=== PATIENT | male | born 1975 | race African-American/Black ===

== ENCOUNTER 2019-05-31 15:32 | Emergency (ER) | payer BC, MEDICAID ==
--- NOTE | 2019-05-31 16:15 | UC ---
Nausea/Vomiting/Diarrhea HPI - HPI Summary HPI Summary: 3 DAYS OF NAUSEA AND VOMITING. NO DIARRHEA. FEELS A LITTLE BETTER TODAY AND WAS ACTUALLY ABLE TO KEEP DOWN HALF A BANANA AND SOME WATER. PATIENT IS A DIABETIC AND REPORTS HE HAS BEEN OUT OF HIS METFORMIN AND GLIPIZIDE FOR ABOUT A MONTH. NO FEVER. - History of Current Complaint Chief Complaint: UCAbdominalPain Stated Complaint: VOMITING, AND NAUSEA Time Seen by Provider: 05/31/19 15:56 Hx Obtained From: Patient Onset/Duration: Gradual Onset, Lasting Days, Still Present Timing: Constant Severity Initially: Moderate Severity Currently: Moderate Pain Intensity: 2 Pain Scale Used: 0-10 Numeric Character: Not Applicable Aggravating Factor(s): Nothing Alleviating Factor(s): Nothing Nausea/Vomiting Presence: Nauseated, Vomiting Vomiting Frequency: Every 3-4 hours Diarrhea Presence: No - Allergies/Home Medications Allergies/Adverse Reactions: Allergies Allergy/AdvReac Type Severity Reaction Status Date / Time Penicillins Allergy Unknown Verified 05/31/19 15:52 Reaction Details PMH/Surg Hx/FS Hx/Imm Hx Endocrine History: Diabetes Cardiovascular History: Hypertension Other History Of: Negative For: Anticoagulant Therapy - Surgical History Surgical History: None Surgery Procedure, Year, and Place: hernia repair at . knee. elbow - Family History Known Family History: Positive: Hypertension, Diabetes - Social History Alcohol Use: None Substance Use Type: Marijuana Substance Use Comment - Amount & Last Used: few times weekly Smoking Status (MU): Light Every Day Tobacco Smoker Type: Cigarettes, Cigars Have You Smoked in the Last Year: Yes - Immunization History Most Recent Influenza Vaccination: not this season, does not want this year Most Recent Tetanus Shot: unknown Most Recent Pneumonia Vaccination: unknown Review of Systems All Other Systems Reviewed And Are Negative: Yes Constitutional: Positive: Fatigue Respiratory: Positive: Negative Cardiovascular: Positive: Negative Gastrointestinal: Positive: Vomiting, Nausea Genitourinary: Positive: Negative Physical Exam Triage Information Reviewed: Yes Appearance: Well-Appearing, No Pain Distress, Well-Nourished Vital Signs: Initial Vital Signs Temp 99.8 F 05/31/19 15:45 Pulse 121 05/31/19 15:45 Resp 16 05/31/19 15:45 BP 152/109 05/31/19 15:45 Pulse Ox 98 05/31/19 15:45 Laboratory Tests 05/31/19 16:04 POC Glucose (mg/dL) 285 H Vital Signs Reviewed: Yes Eyes: Positive: Conjunctiva Clear ENT: Positive: Hearing grossly normal Neck: Positive: Supple Respiratory Exam: Normal Cardiovascular: Positive: Tachycardia Abdomen Description: Positive: Nontender, Soft Musculoskeletal: Positive: No Edema Neurological: Positive: Alert Psychological: Positive: Age Appropriate Behavior Skin: Negative: Rashes Re-Evaluation - Re-Evaluation First Eval Re-Evaluation Time: 17:20 - TO [facility] BY AMBULANCE Change: Worse Naus/Vom/Diarrhea Course/Dx - Course Course Of Treatment: PATIENT ARRIVES WITH HYPERGLYCEMIA (RANDOM GLUCOSE 285), NAUSEA/VOMITING AND OVERALL MALAISE FOR 3 DAYS. PATIENT IS TACHYCARDIC AND TEMP IS BORDERLINE. FELT WORSE AFTER 1 L NORMAL SALINE AND 4 MG OF ZOFRAN. BP ALSO WORSE - 199/115. TO [facility] BY AMBULANCE. - Differential Dx/Diagnosis Provider Diagnosis: Uncontrolled diabetes mellitus, Hypertensive crisis Condition At Discharge: Fair - Physician Notification/Consults Discussed Case/Management/Disposition Of Patient With: Brandon Trejo - TO [facility] BY AMBULANCE Time Discussed With Above Provider: 17:28 Instructed by Provider To: MD Will See In ED Discharge ED - Sign-Out/Discharge Documenting (check all that apply): Patient Departure All imaging exams completed and their final reports reviewed: No Studies - Discharge Plan Condition: Fair Disposition: TRANS HIGHER LVL OF CARE FAC Prescriptions: metFORMIN* [Glucophage 500 MG TAB *] 500 mg PO BID #60 tab Ondansetron ODT TAB* [Zofran Odt TAB*] 4 mg PO Q6H PRN #20 tab.odt PRN Reason: Nausea/Vomiting Referrals: [facility] [Outside] - Billing Disposition and Condition Condition: FAIR Disposition: Trans Higher Lvl of Care Fac
[2019-05-31] MEDS ORDERED: NS 0.9% 1000 ML** 1,000 ML IV ONE (16:18)
[2019-05-31] MEDS ORDERED: Ondansetron INJ* 2 MG/ML VIAL IV ONE (17:09)
[2019-05-31 17:34] VITALS: BP 199/115
== END 2019-05-31 18:00 | disposition short-term general hospital (02) ==
LOC: UCEAST 15:32
DX: E11.65 Type 2 diabetes mellitus with hyperglycemia (principal); I16.9 Hypertensive crisis, unspecified; F17.210 Nicotine dependence, cigarettes, uncomplicated; R53.83 Other fatigue; R11.2 Nausea with vomiting, unspecified; R00.0 Tachycardia, unspecified; Z88.0 Allergy status to penicillin
CPT/HCPCS: 96360; 96374; 99213; G0463; J2405

== ENCOUNTER 2019-05-31 18:11 | Emergency (ER) | payer SELFPAY ==
[2019-05-31] MEDS ORDERED: NS 0.9% 1000 ML** 1,000 ML IV ONE ×2 (18:37→19:58)
--- NOTE | 2019-05-31 18:54 | ED ---
Nausea/Vomiting/Diarrhea HPI - HPI Summary HPI Summary: Patient with history of DM and hypertension not taking meds 1 month complains of nausea and vomiting and mild abdominal cramping 3 days. Endorses mild intermittent chest pain with vomiting. Seen at urgent care today, was tachycardic with elevated blood pressure 199/115, and was sent to the ED for further evaluation. Patient was given 1 L normal saline and 4 mg Zofran at the ED with temporary relief of symptoms. Patient states he has been vomiting 3-4 times a day, unable to tolerate by mouth food or fluids. Patient's denies fever , cough, sore throat, SOB, diarrhea, change in urine, penile or testicular symptoms. Abdominal surgical history is none. Denies prior cardiac history. Positive family cardiac history. Positive smoker. Occasional EtOH and marijuana. - History of Current Complaint Chief Complaint: EDAbdPain Stated Complaint: VOMITING AND NAUSEA PER EMS Time Seen by Provider: 05/31/19 18:35 Hx Obtained From: Patient Onset/Duration: Gradual Onset, Lasting Days Timing: Constant Severity Initially: Mild Severity Currently: Mild Pain Intensity: 3 Pain Scale Used: 0-10 Numeric Location: Diffuse Character: Cramping Aggravating Factor(s): Food Alleviating Factor(s): Vomiting Nausea/Vomiting Presence: Nauseated, Vomiting Vomiting Frequency: Every 3-4 hours Vomiting Characteristics: Nonbilious Diarrhea Presence: No - Allergies/Home Medications Allergies/Adverse Reactions: Allergies Allergy/AdvReac Type Severity Reaction Status Date / Time Penicillins Allergy Unknown Verified 05/31/19 15:52 Reaction Details PMH/Surg Hx/FS Hx/Imm Hx Endocrine/Hematology History: Reports: Hx Blood Disorders - thrombocytopenia, Hx Diabetes Denies: Hx Anticoagulant Therapy, Hx Thyroid Disease Cardiovascular History: Reports: Hx Hypertension Denies: Hx Pacemaker/ICD Respiratory History: Reports: Hx Sleep Apnea - evaluation for 10/2013, Other Respiratory Problems/Disorders - current smoker, chronic rhinitis Denies: Hx Asthma, Hx Chronic Obstructive Pulmonary Disease (COPD) GI History: Reports: Other GI Disorders - episodes intractable NVD History: Denies: Hx Renal Disease Sensory History: Reports: Hx Hearing Problem Opthamlomology History: Denies: Hx Eye Prosthesis Neurological History: Denies: Hx Dementia, Hx Seizures Psychiatric History: Denies: Hx Substance Abuse - Cancer History Cancer Type, Location and Year: hernia - Surgical History Surgery Procedure, Year, and Place: hernia repair at . knee. elbow - Immunization History Date of Tetanus Vaccine: <10years Infectious Disease History: No Infectious Disease History: Denies: Hx Hepatitis, Hx Human Immunodeficiency Virus (HIV), Hx of Known/ Suspected MRSA, Traveled Outside the [place] in Last 30 Days - Family History Known Family History: Positive: Hypertension, Diabetes - Social History Alcohol Use: Rare Hx Substance Use: Yes Substance Use Type: Reports: Marijuana Substance Use Comment - Amount & Last Used: few times weekly Hx Tobacco Use: Yes Smoking Status (MU): Light Every Day Tobacco Smoker Type: Cigarettes, Cigars Have You Smoked in the Last Year: Yes Review of Systems Constitutional: Negative Eyes: Negative ENT: Negative Positive: Chest Pain Respiratory: Negative Positive: Abdominal Pain, Vomiting, Nausea Genitourinary: Negative Musculoskeletal: Negative Skin: Negative Neurological: Negative Psychological: Normal All Other Systems Reviewed And Are Negative: Yes Physical Exam Triage Information Reviewed: Yes Vital Signs On Initial Exam: Initial Vitals Temp Pulse Resp BP Pulse Ox 99.3 F 93 16 166/106 97 05/31/19 18:15 05/31/19 18:15 05/31/19 18:15 05/31/19 18:15 05/31/19 18:15 Vital Signs Reviewed: Yes Appearance: Positive: Well-Appearing Skin: Positive: Warm Head/Face: Positive: Normal Head/Face Inspection Eyes: Positive: Normal Neck: Positive: Supple Respiratory/Lung Sounds: Positive: Clear to Auscultation Cardiovascular: Positive: Normal Abdomen Description: Positive: Nontender Musculoskeletal: Positive: Normal Neurological: Positive: Normal Psychiatric: Positive: Normal AVPU Assessment: Alert - Pati Coma Scale Best Eye Response: 4 - Spontaneous Best Motor Response: 6 - Obeys Commands Best Verbal Response: 5 - Oriented Coma Scale Total: 15 Procedures - Sedation Patient Received Moderate/Deep Sedation with Procedure: No Diagnostics - Vital Signs Vital Signs Temp Pulse Resp BP Pulse Ox 05/31/19 18:15 99.3 F 93 16 166/106 97 - Laboratory Result Diagrams: 05/31/19 18:47 05/31/19 18:47 Lab Statement: Any lab studies that have been ordered have been reviewed, and results considered in the medical decision making process. Naus/Vom/Diarrhea Course/Dx - Course Course Of Treatment: Patient with history of DM and hypertension not taking meds 1 month complains of nausea and vomiting and mild abdominal cramping 3 days. Endorses mild intermittent chest pain with vomiting. Seen at urgent care today, was tachycardic with elevated blood pressure 199/115, and was sent to the ED for further evaluation. Patient was given 1 L normal saline and 4 mg Zofran at the ED with temporary relief of symptoms. Patient states he has been vomiting 3-4 times a day, unable to tolerate by mouth food or fluids. Patient' s denies fever, cough, sore throat, SOB, diarrhea, change in urine, penile or testicular symptoms. Abdominal surgical history is none. Denies prior cardiac history. Positive family cardiac history. Positive smoker. Occasional EtOH and marijuana. 166/106. Blood pressure bpounces up and down between 160s and 180s. Vital signs otherwise within normal limits. WBC 14.9. PH 7.52. BUN/ creatinine ratio 25. Labs otherwise unremarkable. 2 L normal saline here in the ED. EKG sinus rhythm, heart rate 95, same as prior. No active vomiting here in ED. Patient started on metformin 500 mg here in the ED. Patient was given Rx for metformin and ondansetron at urgent care. Patient provided with information to follow-up with [facility] for hypertension management. - Differential Dx/Diagnosis Provider Diagnosis: Nausea & vomiting, Hyperglycemia Discharge ED - Sign-Out/Discharge Documenting (check all that apply): Patient Departure - Discharge Plan Condition: Stable Disposition: HOME Patient Education Materials: Acute Nausea and Vomiting (ED), Diabetic Hyperglycemia (ED) Referrals: No Primary Care Phys,NOPCP [Primary Care Provider] - [facility] [Outside] Additional Instructions: Taking metformin twice a day as directed. Take Zofran as directed for nausea if needed. Drink fluids to maintain hydration. Follow up with [facility] tomorrow for management of hypertension. Return to the ED for any new or worsening symptoms. - Billing Disposition and Condition Condition: STABLE Disposition: Home
[2019-05-31 19:04] LABS: ABS Basophils 0.1 10^3/ul (0-0.2); ABS Eosinophils 0.4 10^3/ul (0-0.6); ABS Lymphocytes 2.2 10^3/ul (1.0-4.8); ABS Monocytes 1.5 10^3/ul (0-0.8); ABS Neutrophils 10.8 10^3/ul (1.5-7.7); Eosinophil % 2.4 %; Hematocrit 43 % (42-52); Hemoglobin 15.2 g/dL (14.0-18.0); Lymphocyte % 14.7 %; Mean Corpuscular HGB Conc 35 g/dL (31-36); Mean Corpuscular Hemoglobin 30 pg (27-31); Mean Corpuscular Volume 85 fL (80-94); Mean Platelet Volume 10.5 fL (7.4-10.4); Nucleated Red Blood Cells % 0.1; Platelet Count 163 10^3/uL (150-450); Red Blood Count 5.13 10^6 /uL (4.18-5.48); Red Cell Distribution Width 14 % (10-15); White Blood Count 14.9 10^3/uL (3.5-10.8)
[2019-05-31 19:19] LABS: Alcohol < 10 mg/dL (<10)
[2019-05-31 19:21] LABS: ALT 10 U/L (7-52); AST 9 U/L (13-39); Albumin 3.7 g/dL (3.2-5.2); Alkaline Phosphatase 70 U/L (34-104); Anion Gap 10 mmol/L (2-11); BUN/Creatinine Ratio 25.8 (8-20); Blood Urea Nitrogen 25 mg/dL (6-24); C Reactive Protein 3.13 mg/L (<8.01); CO2 Carbon Dioxide 27 mmol/L (22-32); Calcium 9.1 mg/dL (8.6-10.3); Chloride 94 mmol/L (101-111); EGFR African American 102.7 (>60); EGFR Non-African American 84.9 (>60); Globulin 3.8 g/dL (2-4); Glucose 268 mg/dL (70-100); Potassium 3.6 mmol/L (3.5-5.0); Sodium 131 mmol/L (135-145); Total Protein 7.5 g/dL (6.4-8.9)
[2019-05-31] MEDS ORDERED: Labetalol IV* 5 MG/ML 20 ML VIAL IV PUSH ONE (20:15)
[2019-05-31 21:46] LABS: Urine Appearance Clear; Urine Bilirubin Negative (Negative); Urine Blood Negative (Negative); Urine Color Amber; Urine Glucose 3+(>=500 mg/dL) (Negative); Urine Ketones 2+ (Negative); Urine Nitrite Negative (Negative); Urine Protein Negative (Negative); Urine Specific Gravity 1.033 (1.010-1.030); Urine Urobilinogen Negative (Negative)
[2019-05-31] MEDS ORDERED: metFORMIN* 500 MG TAB PO ONE (22:04)
[2019-05-31] MEDS ORDERED: Metoclopramide IV* 5 MG/ML 2 ML VIAL IV ONE (22:06)
[2019-05-31 23:25] VITALS: BP 163/99
== END 2019-05-31 23:24 | disposition home or self-care (01) ==
LOC: ED 18:11
DX: E11.65 Type 2 diabetes mellitus with hyperglycemia (principal); Z79.84 Long term (current) use of oral hypoglycemic drugs; I10 Essential (primary) hypertension; Z88.0 Allergy status to penicillin; Z82.49 Family history of ischemic heart disease and other diseases of the circulatory system; Z83.3 Family history of diabetes mellitus; F17.210 Nicotine dependence, cigarettes, uncomplicated; F17.290 Nicotine dependence, other tobacco product, uncomplicated
CPT/HCPCS: 36415; 80053; 80320; 81003; 82803; 83605; 83690; 85025; 86140; 93005; 96361; 96374; 99283; A9270-GY; G0480; J2765

== ENCOUNTER 2019-07-25 20:56 | Emergency (ER) | payer OTHER ==
--- OUTSIDE RECORDS SUMMARY | 2019-07-25 21:06 | XMS REPORT | Continuity of Care Document ---
:1975 External Reference #:[id number] Author Name Sara Haji M.D. (transmitted by agent of provider Karen Rose) Address [address] [place] [address], [place] [address] Care Team Providers Name Role Phone Daniele Muñoz MD - Internal Care Team Information [facility] [place] Medicine Izaiah Owusu MD - Care Team Information [place] [phone] Otolaryngology Chauncey Bedoya MD - Cardiovascular Care Team Information [place] Disease Izaiah Pretty MD - Ophthalmology Care Team Information [place] [phone] Kendrick Hong MD - Infectious Care Team Information [place] Disease Aicha Cohen M.D. 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 Onset: 2015 Type 2 diabetes mellitus Eduardo Feng M.D. Onset: 06/18/2017 Tobacco user Eduardo Feng M.D. Onset: 06/18/2017 Screening for malignant neoplasm of prostate Eduardo Feng M.D. Onset: Sleep apnea Eduardo Feng M.D. Onset: 06/18/2017 Gastroesophageal reflux disease Eduardo Feng M.D. Onset: 06/18/2017 Mixed hyperlipidemia Eduardo Feng M.D. Onset: 09/08/2017 Lack or loss of sexual desire Eduardo Feng M.D. Onset: 09/08/2017 Social History Type Date Description Comments Sex Unknown ETOH Use Rarely consumes alcohol Recreational Drug Use Current Drug User -Marijuana Tobacco Use Start: Unknown Light tobacco smoker (10 or fewer cigarettes/day) Smoking Status Reviewed: 06/01/19 Light tobacco smoker (10 or fewer cigarettes/day) Exercise Type/Frequency Exercises regularly Allergies, Adverse Reactions, Alerts Active Allergies Reaction Severity Comments Date Penicillin unsure was a child Severe 11/13/2015 Environmental 06/26/2017 Medications Active Medications SIG Qnty Indications Ordering Date Provider Jardiance 1 by mouth every 90tabs E11.[facility], 06/01/2019 25mg day M.D. Tablets Lisinopril 1/2 by mouth 30tabs [facility], 06/01/2019 20mg every day M.D. Tablets Atorvastatin Calcium 1 by mouth every 90tabs E78.2 [facility], 2018 day at bedtime M.DRachelle 40mg Tablets Omeprazole 1 by mouth every 30caps K21.9 [place] 06/08/2018 20mg day prn Jelena Feng Capsules DR Blood Pressure check bp daily 1units I10 [place] 09/08/2017 Monitor Auto Jelena Feng Inflate [facility] Freestyle [place] check BS readings 1units E11.9 [place] 07/08/2017 Lite up to three times Jelena Feng W/Device Kit daily as directed Cpap to use daily at 1units G47.30 [place] 06/18/2017 Device bed time Jelena Feng Cpap Mask And cpap supplies - 1units G47.30 [place] 06/18/2017 Supplies headgear, cushionPing M.D. Device tubing, filters, for sleep apnea dx 780.57 Viagra 1 by mouth as 10tabs F52.21 [place] 06/18/2017 50mg Tablets needed Jelena Feng Metformin HCL take 1 tablet by 180tabs E11.9 Saraday Haji, 06/18/2017 1000mg mouth two times M.DRachelle Tablets daily Freestyle Lite Blood check fingerstick 1units E11.9 [place] 12/04/2015 Glucose Monitoring three times daily Jelena Feng System with meals Device Freestyle Lite Test test up to three 2Boxes E11.9 [place] 12/04/2015 times daily date Jelena Feng Strips of last visit: 06/26/17 Freestyle Lancets test up to three 100units E11.9 [place] 12/04/2015 times daily date Jelena Feng Misc of last visit: 06/26/17 Medications Administered in Office Medication SIG Qnty Indications Ordering Provider Date PPD Injection Jaspal Recinos MD 09/17/2018 Immunizations CPT Code Status Date Vaccine Lot # [id number] Given 06/01/2019 Tetanus And Diptheria (Td) For Adult Use [id number] Preservative Free Vital Signs Date Vital Result Comment 06/01/2019 2:38pm Height 74 inches 6'2" Weight 208.00 lb Heart Rate 102 /min BP Systolic Sitting 174 mmHg BP Diastolic Sitting 115 mmHg O2 % BldC Oximetry 97 % BMI (Body Mass Index) 26.7 kg/m2 08/17/2018 1:43pm Height 74 inches 6'2" Weight 232.12 lb Heart Rate 92 /min BP Systolic 144 mmHg BP Diastolic 94 mmHg Body Temperature 98.0 F O2 % BldC Oximetry 97 % BMI (Body Mass Index) 29.8 kg/m2 Results Description No Information Available Procedures Date Code Description Status 10/13/2017 [id number] Diabetic Retinal Eye Exam Completed Medical Devices Description No Information Available Encounters Type Date Location Provider Dx Diagnosis Office Visit 06/01/2019 [facility] Sara Haji, E11.65 Type 2 diabetes 2:[facility] mellitus with hyperglycemia I10 Essential (primary) hypertension G47.33 Obstructive sleep apnea (adult) (pediatric) F17.210 Nicotine dependence, cigarettes, uncomplicated E78.2 Mixed hyperlipidemia Z23 Encounter for immunization Assessments Date Code Description Provider 06/01/2019 E11.65 Type 2 diabetes mellitus with hyperglycemia Sara Haji M.D. 06/01/2019 I10 Essential (primary) hypertension Sara Haji M.D. 06/01/2019 G47.33 Obstructive sleep apnea (adult) (pediatric) Sara Haji M.D. 06/01/2019 F17.210 Nicotine dependence, cigarettes, Sara Haji M.D. uncomplicated 06/01/2019 E78.2 Mixed hyperlipidemia Sara Haji M.D. 06/01/2019 Z23 Encounter for immunization Sara Haji M.D. Plan of Treatment 06/01/2019 - Sara Haji M.D.E11.65 Type 2 diabetes mellitus with hyperglycemiaNew Medication:Jardiance 25 mg - 1 by mouth every dayNew Labs: Hemoglobin A1c (Glyco HGB), Ordered: 06/01/19Comments:we have discussed starting a new medication called Jardiance , you can stop the Glipizide as of today . We reviewed better eating habbits will also improve your sugars Monitor your sugars at least 2-3 times a day and bring on your next visitReferral: Khanh Estrada MD, OphthalmologyFollow up:3 months, 20 minRecommendations: See your station agent every year. It is OK to go every 2 years if he finds no retinal damage from diabetes. Ask your station agent to communicate his findings to us. See a teacher associate every 6 months if you have numbness in your feet or a history of foot ulcers.I10 Essential (primary) hypertensionComments: we are gradually going to increase the blood pressure medication to avoid complicationsFollow up:BP check with nurse in 1 week, 3 wks with me for HTN and BS bqilpaM50.33 Obstructive sleep apnea (adult) (pediatric)Referral:Kathy Pickett MD, Pulmonary WsfykthgH17.210 Nicotine dependence, cigarettes, uncomplicatedComments:please quit smoking !E78.2 Mixed [id number] Encounter for immunization Functional Status Description No Information Available Mental Status Description No Information Available Referrals Refer to Reason for Referral Status Appt Date Kathy Pickett MD Sent [address] [place] [address] [phone] Khanh Estrada MD Sent [address] [place] [address] [phone]
[2019-07-25 21:12] VITALS: BP 148/92
--- NOTE | 2019-07-25 21:41 | UC ---
Neck Pain HPI - HPI Summary HPI Summary: Patient is a 43yo male presenting with R neck and shoulder pain x3 days. Patient states he "just woke up with the pain." Believes it "may be from helping a friend move last week or from sleeping wrong." Patient described pain as sharp and tight only when he moves his neck or R arm certain ways. States worse with turning neck to right side and when lift arm above his head. Denies pain at rest. Denies numbness and tingling. Denies decreased strength. Denies trauma or injury. Patient states he "took an muscle relaxant from a friend last night" and it helps him sleep better. Also states warm water from the shower helps relieve pain. Denies taking any otc analgesics. States "pain is better than when it started but still hurts." - History of Current Complaint Chief Complaint: UCUpperExtremity Stated Complaint: NECK/SHOULDER PAIN Hx Obtained From: Patient Pain Intensity: 9 Pain Scale Used: 0-10 Numeric - Allergies/Home Medications Allergies/Adverse Reactions: Allergies Allergy/AdvReac Type Severity Reaction Status Date / Time Penicillins Allergy Unknown Verified 07/25/19 21:12 Reaction Details Home Medications: Home Medications Empagliflozin [Jardiance] 10 mg PO DAILY 07/25/19 [History Confirmed 07/25/19] Lisinopril [Zestril] 10 mg PO DAILY 07/25/19 [History Confirmed 07/25/19] PMH/Surg Hx/FS Hx/Imm Hx Endocrine History: Diabetes Cardiovascular History: Hypertension Other History Of: Negative For: Anticoagulant Therapy - Surgical History Surgical History: Yes Surgery Procedure, Year, and Place: hernia repair at . knee. elbow - Family History Known Family History: Positive: Hypertension, Diabetes - Social History Alcohol Use: Rare Substance Use Type: Marijuana Substance Use Comment - Amount & Last Used: daily Smoking Status (MU): Light Every Day Tobacco Smoker Type: Cigarettes, Cigars Have You Smoked in the Last Year: Yes - Immunization History Most Recent Influenza Vaccination: not this season, does not want this year Most Recent Tetanus Shot: unknown Most Recent Pneumonia Vaccination: unknown Review of Systems All Other Systems Reviewed And Are Negative: Yes Constitutional: Positive: Negative Respiratory: Positive: Negative Cardiovascular: Positive: Negative Gastrointestinal: Positive: Negative Motor: Positive: Negative Neurovascular: Positive: Negative Musculoskeletal: Positive: Arthralgia - neck and shoulder pain, Decreased ROM - decreased rotation of head to right side. Negative: Edema Neurological: Positive: Negative. Negative: Weakness, Paresthesia, Numbness Physical Exam Triage Information Reviewed: Yes Appearance: Well-Appearing, No Pain Distress, Well-Nourished Vital Signs: Initial Vital Signs Temp 100.7 F 07/25/19 21:06 Pulse 101 07/25/19 21:06 Resp 18 07/25/19 21:06 BP 148/92 07/25/19 21:06 Pulse Ox 98 07/25/19 21:06 Vital Signs Reviewed: Yes Eyes: Positive: Conjunctiva Clear ENT: Positive: Hearing grossly normal Neck: Positive: Supple, Nontender, No Lymphadenopathy. Negative: Nuchal Rigidity Respiratory Exam: Normal Respiratory: Positive: Lungs clear, Normal breath sounds, No respiratory distress Cardiovascular Exam: Normal Cardiovascular: Positive: RRR Musculoskeletal: Positive: Strength Intact, No Edema, ROM Limited @ - neck rotation to right side d/t pain, Other: - mild tenderness to palpation of R trapezius muscle. no midline tenderness of spine Neurological Exam: Other - sensation grossly intact Neurological: Positive: Alert Psychological: Positive: Age Appropriate Behavior Neck Pain Course/Dx - Course Course Of Treatment: Patient presenting with nontraumatic neck pain x3 days, gradually improving. Discussed muscle strain and spasm with patient. I instructed to continue with rest, heat, stretching, and to take ibuprofen for pain and inflammation. Patient requested sling to use throughout the day. Also treated with flexeril at bedtime. He received dose here to take home and take tonight at bedtime. Educated on side effects of flexeril including drowsiness and instructed not to drive while taking it. I instructed to follow up with pcp or ortho referral if pain persists or he experiences new or worsening symptoms. Patient voiced understanding and agreed with treatment plan. - Differential Dx/Diagnosis Differential Dx/HQI/PQRI: Sprain, Strain Provider Diagnosis: Muscle spasms of neck Discharge ED - Sign-Out/Discharge Documenting (check all that apply): Patient Departure All imaging exams completed and their final reports reviewed: No Studies - Discharge Plan Condition: Stable Disposition: HOME Prescriptions: Cyclobenzaprine TAB* [Flexeril 10 MG TAB*] 10 mg PO BEDTIME PRN #4 tab PRN Reason: Spasms - Neck Patient Education Materials: Cyclobenzaprine (By mouth), Muscle Strain (ED) Referrals: Sara Haji MD [Primary Care Provider] - If Needed Nick Small MD [Medical Doctor] - If Needed Additional Instructions: Take Flexeril as bedtime for muscle spasms. You received a dose to take home with you tonight. The remainder of your prescription was sent to your pharmacy. Rest, heat, stretch, and take ibuprofen as directed to help alleviate pain symptoms. Refrain from strenuous physical activity until pain has resolved. Follow up with your primary care provider or the orthopedics referral listed below if your pain does not resolve within 1-2 weeks. - Billing Disposition and Condition Condition: STABLE Disposition: Home - Attestation Statements Provider Attestation: I was available for consult. This patient was seen by the JOY. The patient was not presented to, seen by, or examined by me. -Srini
[2019-07-25] MEDS ORDERED: Cyclobenzaprine TAB* 10 MG PO ONE (22:06)
== END 2019-07-25 22:28 | disposition home or self-care (01) ==
LOC: UCEAST 20:56
DX: M62.838 Other muscle spasm (principal); I10 Essential (primary) hypertension; E11.9 Type 2 diabetes mellitus without complications; F17.210 Nicotine dependence, cigarettes, uncomplicated; F17.290 Nicotine dependence, other tobacco product, uncomplicated; Z88.0 Allergy status to penicillin; Z79.84 Long term (current) use of oral hypoglycemic drugs; Z79.899 Other long term (current) drug therapy
CPT/HCPCS: 99213; A9270-GY; G0463

== ENCOUNTER 2019-08-17 08:06 | Observation (INO) | payer OTHER ==
[2019-08-17] MEDS ORDERED: NS 0.9% 1000 ML** 1,000 ML IV ONE ×3 (08:13→11:18)
[2019-08-17] MEDS ORDERED: Ondansetron INJ* 2 MG/ML VIAL IV ONE ×2 (08:13→10:31)
--- NOTE | 2019-08-17 08:24 | ED ---
GI/ HPI - HPI Summary HPI Summary: 43 year old M presenting to [facility] alone complains of dark emesis and abd discomfort since 08/16/2019 early in the morning. Patient reports nausea, diaphoresis, and chills. Patient denies sore throat and current abd pain. PMHx of diabetes, HTN, and the same emesis issue as present before for which he has presented to [facility] 6 or 7 times. No PMHx of stomach bleeding. SHx of hernia repair in youth. The pt denies pain. Symptoms aggravated by nothing. Symptoms alleviated by nothing. - History of Current Complaint Chief Complaint: EDNauseaVomitDiarrh Time Seen by Provider: 08/17/19 08:11 Stated Complaint: STOMACH ISSUES PER PT Hx Obtained From: Patient Onset/Duration: Started Days Ago, Still Present Timing: Constant Current Severity: Severe Pain Intensity: 10 Associated Signs and Symptoms: Positive: Nausea, Vomiting - since 08/14/2019. dark vomitus in bag, Diaphoresis, Chills, Other: - negative - sore throat. Negative: Abdominal Pain Aggravating Factor(s): Nothing Alleviating Factor(s): Nothing - Additional Pertinent History Primary Care Physician: [id number] - Allergy/Home Medications Allergies/Adverse Reactions: Allergies Allergy/AdvReac Type Severity Reaction Status Date / Time Penicillins Allergy Unknown Verified 08/17/19 08:10 Reaction Details Home Medications: Home Medications NK [No Home Medications Reported] 08/17/19 [History Confirmed 08/17/19] PMH/Surg Hx/FS Hx/Imm Hx Endocrine/Hematology History: Reports: Hx Blood Disorders - thrombocytopenia, Hx Diabetes - type 2 dm Denies: Hx Anticoagulant Therapy, Hx Thyroid Disease Cardiovascular History: Reports: Hx Hypertension Denies: Hx Pacemaker/ICD Respiratory History: Reports: Hx Sleep Apnea - evaluation for 10/2013, Other Respiratory Problems/Disorders - current smoker, chronic rhinitis Denies: Hx Asthma, Hx Chronic Obstructive Pulmonary Disease (COPD) GI History: Reports: Other GI Disorders - episodes intractable NVD History: Denies: Hx Renal Disease Sensory History: Reports: Hx Hearing Problem Denies: Hx Eye Prosthesis Opthamlomology History: Denies: Hx Eye Prosthesis Neurological History: Denies: Hx Dementia, Hx Seizures Psychiatric History: Denies: Hx Substance Abuse - Cancer History Cancer Type, Location and Year: hernia - Surgical History Surgery Procedure, Year, and Place: hernia repair at . knee. elbow - Immunization History Date of Tetanus Vaccine: <10years Infectious Disease History: No Infectious Disease History: Denies: Hx Hepatitis, Hx Human Immunodeficiency Virus (HIV), Hx of Known/ Suspected MRSA, Traveled Outside the [place] in Last 30 Days - Family History Known Family History: Positive: Hypertension, Diabetes - Social History Alcohol Use: Rare Hx Substance Use: Yes Substance Use Type: Reports: Marijuana Substance Use Comment - Amount & Last Used: daily Hx Tobacco Use: Yes Smoking Status (MU): Light Every Day Tobacco Smoker Type: Cigarettes, Cigars Have You Smoked in the Last Year: Yes Review of Systems Positive: Chills, Skin Diaphoresis Negative: Sore Throat Positive: Vomiting - since 08/16/2019. dark vomitus in bag, Nausea. Negative: Abdominal Pain - abd discomfort All Other Systems Reviewed And Are Negative: Yes Physical Exam - Summary Physical Exam Summary: Constitutional: Well-developed, Well-nourished, Alert. (-) Distressed Skin: Warm, Dry HENT: Normocephalic; Atraumatic Eyes: Conjunctiva normal Neck: Musculoskeletal ROM normal neck. (-) JVD, (-) Stridor, (-) Tracheal deviation Cardio: Rhythm regular, rate normal, Heart sounds normal; Intact distal pulses; The pedal pulses are 2+ and symmetric. Radial pulses are 2+ and symmetric. (-) Murmur Pulmonary/Chest wall: Effort normal. (-) Respiratory distress, (-) Wheezes, (-) Rales Abd: soft, nondistended, nontender Musculoskeletal: (-) Edema Lymph: (-) Cervical adenopathy Neuro: Alert, Oriented x3 Psych: Mood and affect Normal GIGU: dark vomitus in bag Triage Information Reviewed: Yes Vital Signs On Initial Exam: Initial Vitals Temp Pulse Resp BP Pulse Ox 98.3 F 99 19 178/114 99 08/17/19 08:08 08/17/19 08:08 08/17/19 08:08 08/17/19 08:08 08/17/19 08:08 Vital Signs Reviewed: Yes Procedures - Sedation Patient Received Moderate/Deep Sedation with Procedure: No Diagnostics - Vital Signs Vital Signs Temp Pulse Resp BP Pulse Ox 08/17/19 08:08 98.3 F 99 19 178/114 99 - Laboratory Result Diagrams: 08/17/19 08:21 08/17/19 08:21 Lab Statement: Any lab studies that have been ordered have been reviewed, and results considered in the medical decision making process. GIGU Course/Dx - Course Course Of Treatment: 43 year old M presenting to [facility] alone complains of dark emesis and abd discomfort since 08/16/2019 early in the morning. Physical exam findings: GIGU: dark vomitus in emesis bag, Abd: soft, nondistended, nontender. Bloodwork results with no significant abnormalities except for H WBC, H Absolute Neuts, H Absolute Monos, L Chloride, H Anion Gap, H Glucose, L AST. In the ED course, the patient was given Ns, 4 mg IV Ondansetron, 80 mg Pantoprazole IV. We discussed patient care with at 1125 who recommended admission. The patient will be admitted to the hospitalist. The patient is agreeable with this plan. - Diagnoses Provider Diagnoses: Upper GI bleed - Physician Notifications Discussed Care Of Patient With: Ole Mcintosh - admit Time Discussed With Above Provider: 11:25 Instructed by Provider To: Admit As Inpatient Discharge ED - Sign-Out/Discharge Documenting (check all that apply): Patient Departure - admission - Discharge Plan Condition: Stable Disposition: ADMITTED TO [facility] Referrals: Sara Haji MD [Primary Care Provider] - - Billing Disposition and Condition Condition: STABLE Disposition: Admitted to [facility] - Attestation Statements Document Initiated by Zack: Yes Documenting Scribe: Chucho Santana Provider For Whom Scribe is Documenting (Include Credential): Ryan Hernandez DO Scribe Attestation: Chucho Deluna scribed for Ryan Hernandez DO on 08/17/19 at 1238. Scribe Documentation Reviewed: Yes Provider Attestation: The documentation as recorded by the Chucho perry accurately reflects the service I personally performed and the decisions made by Ryan stewart DO Status of Scrjeremy Document: Viewed
[2019-08-17 08:29] LABS: ABS Basophils 0.1 10^3/ul (0-0.2); ABS Eosinophils 0.1 10^3/ul (0-0.6); ABS Lymphocytes 1.8 10^3/ul (1.0-4.8); ABS Monocytes 0.9 10^3/ul (0-0.8); ABS Neutrophils 14.8 10^3/ul (1.5-7.7); Eosinophil % 0.4 %; Hematocrit 42 % (42-52); Hemoglobin 14.4 g/dL (14.0-18.0); Mean Corpuscular HGB Conc 35 g/dL (31-36); Mean Corpuscular Hemoglobin 30 pg (27-31); Mean Corpuscular Volume 87 fL (80-94); Mean Platelet Volume 9.5 fL (7.4-10.4); Nucleated Red Blood Cells % 0.1; Platelet Count 201 10^3/uL (150-450); Red Cell Distribution Width 14 % (10-15); White Blood Count 17.7 10^3/uL (3.5-10.8)
[2019-08-17 08:45] LABS: Albumin 4.2 g/dL (3.2-5.2); Albumin/Globulin Ratio 1.2 (1-3); BUN/Creatinine Ratio 19.4 (8-20); Calcium 9.6 mg/dL (8.6-10.3); EGFR African American 107.8 (>60); EGFR Non-African American 89.1 (>60); Globulin 3.5 g/dL (2-4); Potassium 3.8 mmol/L (3.5-5.0); Total Protein 7.7 g/dL (6.4-8.9)
[2019-08-17] MEDS ORDERED: Pantoprazole IV* 40 MG IV ONE (11:18)
--- NOTE | 2019-08-17 12:39 | ADMNOTE ---
Subjective Date of Service: 08/17/19 Interval History: ADMISSION HISTORY AND PHYSICAL EXAM: Allergies Allergy/AdvReac Type Severity Reaction Status Date / Time Penicillins Allergy Unknown Verified 08/17/19 08:10 Reaction Details Home Medications Medication Instructions Recorded Confirmed Type NK [No Home Medications Reported] 08/17/19 08/17/19 History Patient takes lisinopril 20 mg daily, jardiance 25 mg dailyTh HPI: The patient has had frequent vomiting for 1 1/2 days, some nausea. Initially brief period of diarrhea. He states he has had similar attacks at least 7 times. Occ some blood in emesis. Family History: Findings - umremarkable Social History: Findings - Occ alcohol. Current smoker, tobacco and marijuana. Mother Cristina Albarado is his SDM. Self employed, lives alone. Past Medical History: Findings - DM, HTN, MEME, herniorrhaphy, R elbow surgery, R knee surgery, cheloid surgery Review of Systems - Measurements Intake and Output: Intake and Output Last 24 Hours 08/15/19 08/16/19 08/17/19 08/18/19 06:59 06:59 06:59 06:59 Intake Total 1999 Balance 1999 Weight 200 lb Intake: IV Fluids 1999 - Review of Systems Constitutional Symptoms: Positive: Weight Loss - uncertain Dermatology: Positive: Other - many cheloids HEENT: Positive: Normal Eyes: Positive: Normal Thyroid: Positive: Normal Pulmonary: Positive: Normal Cardiology: Positive: Normal Gastroenterology: Positive: Nausea, Vomiting Genital - Urinary: Positive: Normal Genitourinary - Male: Negative: Prostatism, Erectile Dysfunction, Family Hx of Prostate Cancer, Other Endocrinology: Positive: Normal Hematologic/Lymphatic: Negative: Anemia, Easy Bruising, Hx Leukemia, Hx Lymphoma, Use of Anticoagulant, Use of Antiplatelet Drugs, Other Neurology: Positive: Normal Psychiatry: Positive: Normal Allergic/Immunologic: Negative: Hx Anaphylaxis, Hx Angioedema, Hx Environmental, Hx Seasonal, Asthma, Hx HIV, Immunocompromise, Swollen Glands LymphNodes, Other Objective Active Medications: Sodium Chloride (Ns 0.9% 1000 Ml) 1,000 mls @ 150 mls/hr IV ED ONCE ONE Stop: 08/17/19 17:57 Last Admin: 08/17/19 11:37 Dose: 150 mls/hr Vital Signs - 8 hr 08/17/19 08/17/19 08/17/19 08:08 08:17 08:18 Temperature 98.3 F Pulse Rate 99 100 Respiratory 19 Rate Blood Pressure 178/114 191/128 (mmHg) O2 Sat by Pulse 99 100 Oximetry 08/17/19 08/17/19 08/17/19 09:00 09:45 10:00 Temperature Pulse Rate 105 104 104 Respiratory Rate Blood Pressure 179/110 (mmHg) O2 Sat by Pulse 97 96 96 Oximetry 08/17/19 11:00 Temperature Pulse Rate 173 Respiratory Rate Blood Pressure (mmHg) O2 Sat by Pulse 73 Oximetry Oxygen Devices in Use Now: None Appearance: Alert, sitting up on ED stretcher. In good spirits. Looks comfortable. Eyes: No Scleral Icterus Neck: NL Appearance and Movements; NL JVP, No Thyroid Enlargement, Masses Respiratory: Symmetrical Chest Expansion and Respiratory Effort, Clear to Auscultation, Clear to Percussion Cardiovascular: NL Sounds; No Murmurs; No JVD, RRR, No Edema, - Abdominal: NL Sounds; No Tenderness; No Distention, No Hepatosplenomegaly, - Extremities: No Edema, No Clubbing, Cyanosis, - Skin: - - multiple cheloids head, trunk Neurological: Alert and Oriented x 3, NL Sensation Result Diagrams: 08/17/19 08:21 08/17/19 08:21 Microbiology and Other Data: Microbiology 08/17/19 08:55 Gastric Occult Blood - Final Gastric Fluid Assess/Plan/Problems-Billing Assessment: - Patient Problems (1) Cyclical vomiting Current Visit: Yes Status: Acute Comment: The patient rejects the idea that marijuana could be a factor. GI consult requested. IV fluids, anti-emetics, clear liquid diet. (2) Hypertension Current Visit: No Status: Acute Code(s): I10 - ESSENTIAL (PRIMARY) HYPERTENSION SNOMED Code(s): 65047764 Comment: Continue lisinopril (3) Type 2 diabetes mellitus Current Visit: No Status: Chronic Comment: Addon A1C. Takes Jardiance 25 mg at home. Will give Lispro by SS only for now. (4) Tobacco abuse Current Visit: Yes Status: Acute Code(s): Z72.0 - TOBACCO USE SNOMED Code( s): 856605139 Comment: Pt advised to quit smoking and avoid second hand smoke. Pt declined NRT.
[2019-08-17] MEDS ORDERED: Dextrose 50% Syringe 50 ML* 25 GM/50 ML SYRINGE IV PUSH PRN (13:12)
[2019-08-17] MEDS ORDERED: Ondansetron INJ* 2 MG/ML VIAL IV PRN (13:24)
[2019-08-17] MEDS ORDERED: Midazolam* 1 MG/ML 10 ML VIAL (10 MG) ONE (15:13)
[2019-08-17] MEDS ORDERED: fentaNYL* 50 MCG/ML 2 ML VIAL (100 MCG VIAL) ONE (15:13)
[2019-08-17] MEDS ORDERED: diPHENhydraMINE IV* 50 MG/ML 1 ml VIAL (BENADRYL) ONE (15:31)
[2019-08-17] MEDS: Lisinopril TAB* 10 MG PO SCH (17:26)
[2019-08-17] MEDS: Insulin LISPRO* 1 UNITS UNIT SUBCUT SCH ×2 (17:27→21:38)
[2019-08-17] MEDS: Pantoprazole IV* 40 MG IV SCH (17:45)
[2019-08-17] MEDS: D5W 1/2 NS KCl 20 Meq 1000 ML* 1,000 ML IV SCH (17:45)
--- NOTE | 2019-08-17 19:41 | CONS ---
CC: Dr. Mcintosh * GASTROENTEROLOGY CONSULT REPORT: DATE OF CONSULT: 08/17/19 REQUESTING PROVIDER: Dr. Mcintosh. REASON FOR CONSULT: Nausea, vomiting. HISTORY OF PRESENT ILLNESS: Mr. Albarado is a 43-year-old gentleman with a history of type 2 diabetes; hypertension; MEME, on CPAP machine, who is admitted with recurrent episode of nausea, vomiting, and abdominal pain. Mr. Albarado reports that he has had episodic nausea and vomiting since 2016. He estimates that he has had approximately 7 episodes since this time. He reports that the episodes can last up to a week at a time. He describes multiple episodes of vomiting while symptomatic. Initially, he sees the food that he ate in his emesis. He then sees only liquid and bile. He has seen some streaky brown material in his emesis, which he thought may have been old blood. He does not know if he seen bright red blood. During the episodes, he also has significant upper abdominal discomfort and diarrhea. The stool was usually loose and dark brown. The diarrhea typically was only in the beginning of the episode while the nausea, vomiting and abdominal pain persist for the duration of the symptoms. The patient's current presentation began on Thursday. His symptoms have persisted. Presented to the ED for evaluation. He has been seen in the ED on multiple occasions for the same symptoms and is usually given IV fluids. He has not seen a molded goods spot picker in the outpatient setting. He has not had endoscopy before. He is on pantoprazole 40 mg daily. No significant NSAID use. Has noted some chills and sweating recently. Temps were noted to be 100.2. No other symptoms to suggest a concurrent flu or illness. Between the episodes, the patient is typically asymptomatic. He has occasional abdominal discomfort, which he thinks may be related to dairy. No significant issues with his bowel habits at baseline. He does smoke marijuana up to a few times a day. On arrival to the ED, Mr. Albarado was noted to have a white count of 17.7, hemoglobin 14.4. Chloride low at 96. Glucose elevated at 217. AST slightly low at 12. GI consulted. On interview, Mr. Albarado reports that his abdominal pain is actually a bit better currently. He last had vomiting a few hours prior. Last loose bowel movement was this morning. PAST MEDICAL HISTORY: 1. Diabetes type 2. 2. Hypertension. 3. MEME, on a CPAP. 4. Keloids. PAST SURGICAL HISTORY: 1. Elbow and knee surgeries. 2. Hernia repair as a new born. 3. Ear surgeries for a cholesteatoma. HOME MEDICATIONS: The patient reports: 1. Pantoprazole. 2. Lisinopril. 3. Jardiance. ALLERGIES: PENICILLIN. FAMILY HISTORY: Cutaneous T-cell lymphoma in father. Hypertension and diabetes also run in his family. No relevant GI conditions. 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 He drinks alcohol once a week. Estimates that he drinks 2 drinks max at a time. He uses marijuana up to a few times a day. Currently single. PHYSICAL EXAM: Vital Signs: T-max 100.2, heart rate low 100s, blood pressure 158/63, 97% on room air. General: Tired, but otherwise well-appearing - Cypriot gentleman, in no acute distress. HEENT: Mucous membranes are moist. Cardiovascular: Mild tachycardia. Regular rhythm. Pulmonary: Breathing comfortably. Abdomen: Soft. No significant tenderness or distention. Skin: Multiple keloids seen across the patient's chest, which he says are from chickenpox. Neuro: A and O x3. No gross neuro deficits. DIAGNOSTIC STUDIES/LAB DATA: White count 17.7, chloride 96, glucose 217. Labs otherwise unremarkable. Imaging: CT abdomen and pelvis was performed in 2015, which was when his nausea , vomiting symptoms started. This exam was read as unremarkable. IMPRESSION AND RECOMMENDATION: Mr. Albarado is a 43-year-old gentleman with a history of type 2 diabetes, hypertension, sleep apnea, and daily marijuana use, who is admitted for recurrent nausea and vomiting. The patient has had multiple episodes of severe nausea, vomiting and abdominal pain. Presentation raises concern for cyclic vomiting syndrome, although cannabis hyperemesis syndrome also considered given his daily marijuana use. There certainly can be some overlap between these 2 conditions. At this point, I think it is reasonable to proceed with an upper endoscopy to evaluate for any acute findings such as esophagitis or peptic ulcer disease. If symptoms persist and no acute findings on EGD, then I would consider updating his CT abdomen and pelvis. Please also check lipase as this was not checked during this admission. Please keep n.p.o. for now due to plan for procedure. Continue IV fluids and symptomatic management. Of note, prior records might be helpful for review. Lisinopril can cause intestinal angioedema which can present as episodic nausea and vomiting and abdominal pain. I think this is less likely as the patient seems to remember a time when he was not on lisinopril, but was still having the episodes. He is not entirely confident in this history though. Would also recommend strongly that he avoid marijuana use for a prolonged period of time to see if this helps prevent the episodes from occurring. Thank you very much for this consult. GI will continue to follow along. [id number]/[facility] #: [id number] GIBRAN
[2019-08-17 20:17] LABS: Activated Partial Thrombo Time 27.9 seconds (26.0-38.0); INR 1.03 (0.82-1.09)
[2019-08-18] MEDS: D5W 1/2 NS KCl 20 Meq 1000 ML* 1,000 ML IV SCH (03:04)
--- NOTE | 2019-08-18 03:48 | PRO ---
CC: Ole Mcintosh MD; Sara Haji MD * DATE OF PROCEDURE: 08/17/19 - ROOM #[id number] REFERRING PROVIDERS: Ole Mcintosh MD and Sara Haji MD PROCEDURE: EGD with biopsy. INDICATION: Episodic nausea and vomiting. Presenting with recurrent symptoms. MEDICATIONS GIVEN: 1. Midazolam 10 mg IV. 2. Fentanyl 100 mcg IV. 3. Benadryl 50 mg IV. DESCRIPTION OF PROCEDURE: Full disclosure of risks was reviewed with the patient as detailed on the consent form. The patient was placed in the left lateral decubitus position and monitored with continuous pulse oximetry, capnography, interval blood pressure monitoring, and direct observation. A bite -block was placed between the patient's teeth. An adult gastroscope was then inserted into the patient's mouth and advanced down the esophagus, into the stomach and into the distal duodenum. Findings and interventions are described below. FINDINGS: Esophagus was a tubular structure. Esophagus in general appeared to be less sensible than normal. There also did appear to be linear furrowing throughout the mid and distal esophagus. GE junction occurred at 47 cm and was regular with mild esophagitis. Scope was advanced into the stomach. Stomach was examined in the forward and retroflexed views. In the gastric cardia, there was a very erythematous patch. Biopsies obtained. Gastric mucosa otherwise was unremarkable. Biopsy obtained from antrum for CLOtest. Biopsy is also obtained from the gastric antrum and body for histologic evaluation. Scope was then advanced into the duodenum to at least the third portion. In the third portion of the duodenum, there was a tiny nodule that might represent a polyp. This was largely removed with biopsy forceps. Biopsies from the duodenum were taken for histological evaluation as well as disaccharidase enzyme analysis. Scope was then withdrawn back into the esophagus. Biopsies were obtained from the GE junction as well as the mid, distal, and proximal esophagus. The scope was then withdrawn from the patient. The patient tolerated the procedure well and was recovered in the GI recovery area. IMPRESSION: 1. Complete upper endoscopy to distal duodenum. 2. Abnormal-appearing esophagus raises concern for eosinophilic esophagitis. 3. Mild esophagitis. 4. Erythematous patch in the gastric cardia. I suspect this represents prolapse changes from vomiting. 5. Small nodule in the third portion of the duodenum, may represent small adenoma, almost certainly this is not contributing to patient's symptoms. FOLLOWUP: 1. Await pathology. 2. Would switch from pantoprazole to IV PPI for today, then would switch to omeprazole 20 mg twice daily as the patient is feeling better. 3. Can advance diet as tolerated. 4. Continue supportive care and antiemetics. 5. If symptoms fail to improve, then I would recommend updating his CT abdomen and pelvis. 6. If symptoms do improve, then I would recommend outpatient GI followup. 7. Strongly recommend the patient have a prolonged period off of marijuana use to see if this contributing to this episodic nausea and vomiting symptoms. Thank you very much for this referral. [id number]/[facility] #: [id number] GIBRAN
[2019-08-18] MEDS: Pantoprazole IV* 40 MG IV SCH (05:23)
[2019-08-18] MEDS: Lisinopril TAB* 10 MG PO SCH (07:51)
[2019-08-18 08:01] VITALS: BP 150/70
[2019-08-18] MEDS ORDERED: EMPAGLIFOZIN 25 MG PO SCH (09:00)
[2019-08-18] MEDS: Insulin LISPRO* 1 UNITS UNIT SUBCUT SCH ×2 (09:27→13:02)
--- NOTE | 2019-08-18 10:40 | DS ---
CC: Dr. Haji DATE OF ADMISSION: 08/17/2019. DATE OF DISCHARGE: 08/18/2019. HISTORY OF PRESENT ILLNESS: This 43-year-old man presented with vomiting of one- and-a-half days dur ation with some nausea. He had a little bit of diarrhea at the beginning. He says he had similar at tacks seven times in the past. History and physical exam are detailed in the admission note. White count was 17.7, this was not repeated. Blood sugar was 217. Other values were also in the 200 s. His hemoglobin A1c was 7.6. Electrolytes were unremarkable. Anion gap was 12. The patient received intravenous fluids and intravenous pantoprazole. Dr. Ramírez Leong did an endosc opy which showed an abnormal-appearing esophagus, possibly due to eosinophilic esophagitis. There wa s also the appearance of mild esophagitis. There was any erythematous patch in the gastric cardia, po ssibly related to vomiting. There was a small nodule in the third portion of the duodenum, possibly a small adenoma, almost certainly not relating to his symptoms. Biopsies were taken. The patient should follow-up with Dr. Perez in two to three weeks. He will take a PPI twice a day for one to two months depending on his follow-up results. FINAL DIAGNOSES: 1. Esophagitis, rule out eosinophilic esophagitis. 2. Diabetes. 3. Hypertension. 4. Tobacco use disorder. DISCHARGE MEDICATIONS: 1. Omeprazole 20 mg b.i.d. 2. Lisinopril 20 mg daily. 3. Empagliflozin 25 mg daily. DISPOSITION ON DISCHARGE: Discharged home. CONDITION ON DISCHARGE: Improved. [id number]/[facility] #: [id number]
== END 2019-08-18 13:20 | disposition home or self-care (01) ==
LOC: ED 08:06 → MED 13:01
PROVIDERS: ADMIT Internal Medicine; ATTEND Internal Medicine
DX: K20.9 Esophagitis, unspecified (principal); E11.9 Type 2 diabetes mellitus without complications; K92.2 Gastrointestinal hemorrhage, unspecified; I10 Essential (primary) hypertension; R10.9 Unspecified abdominal pain; R11.2 Nausea with vomiting, unspecified; G47.33 Obstructive sleep apnea (adult) (pediatric); F17.210 Nicotine dependence, cigarettes, uncomplicated; L91.0 Hypertrophic scar; Z79.899 Other long term (current) drug therapy; Z88.0 Allergy status to penicillin
CPT/HCPCS: 36415; 80053; 82271; 82657; 83036; 85025; 85610; 85730; 87077; 88305; 88312; 96361; 96374; 96375; 96376; 99156; 99157; 99283; 99406; A9270-GY; G0378; J1200; J2250; J2405; J3010

== ENCOUNTER 2020-08-07 00:03 | Observation (INO) ==
[2020-08-07] MEDS: Lactated Ringers 1000 ml BAG 1,000 ML IV ONE ×2 (00:58→03:56)
[2020-08-07 01:18] LABS: ABS Basophils 0.1 10^3/ul (0-0.2); ABS Eosinophils 0.2 10^3/ul (0-0.6); ABS Lymphocytes 1.2 10^3/ul (1.0-4.8); ABS Monocytes 0.8 10^3/ul (0-0.8); ABS Neutrophils 7.7 10^3/ul (1.5-7.7); Eosinophil % 1.8 %; Hematocrit 43 % (42-52); Hemoglobin 14.9 g/dL (14.0-18.0); Lymphocyte % 12.3 %; Mean Corpuscular HGB Conc 35 g/dL (31-36); Mean Corpuscular Hemoglobin 30 pg (27-31); Mean Corpuscular Volume 87 fL (80-94); Mean Platelet Volume 9.9 fL (7.4-10.4); Platelet Count 170 10^3/uL (150-450); Red Blood Count 4.93 10^6 /uL (4.18-5.48); Red Cell Distribution Width 14 % (10-15)
[2020-08-07 01:34] LABS: ALT 14 U/L (7-52); AST 14 U/L (13-39); Albumin/Globulin Ratio 1.3 (1-3); Alkaline Phosphatase 59 U/L (34-104); Anion Gap 4 mmol/L (2-11); BUN/Creatinine Ratio 13.5 (8-20); Blood Urea Nitrogen 14 mg/dL (6-24); CO2 Carbon Dioxide 33 mmol/L (22-32); Calcium 8.9 mg/dL (8.6-10.3); Chloride 99 mmol/L (101-111); EGFR African American 94.3 (>60); EGFR Non-African American 77.9 (>60); Globulin 3.2 g/dL (2-4); Glucose 233 mg/dL (70-100); Potassium 3.6 mmol/L (3.5-5.0); Sodium 136 mmol/L (135-145); Total Protein 7.2 g/dL (6.4-8.9)
[2020-08-07 01:35] LABS: Troponin I 0.01 ng/mL (<0.03)
[2020-08-07 01:59] LABS: Alcohol, S < 10 mg/dL (<10)
[2020-08-07 02:14] LABS: TSH Ultra Thyroid Stim Horm 0.39 mcIU/mL (0.34-5.60)
[2020-08-07 03:41] LABS: Urine Appearance Cloudy; Urine Bilirubin Negative (Negative); Urine Blood Negative (Negative); Urine Color Yellow; Urine Glucose 3+(>=500 mg/dL) (Negative); Urine Ketones Trace (Negative); Urine Nitrite Negative (Negative); Urine Protein 1+(30 mg/dL) (Negative); Urine Specific Gravity 1.025 (1.010-1.030); Urine Urobilinogen Negative (Negative)
[2020-08-07 03:46] LABS: Urine Bacteria Absent (Absent); Urine Red Blood Cell Trace(0-2/hpf) (Absent); Urine Squamous Epithelial Cell Present (Absent); Urine White Blood Cell Trace(0-5/hpf) (Absent)
[2020-08-07 03:56] LABS: Urine Benzodiazepine Screen None Detected (None Detect); Urine Cannabinoids Screen Presumptive Positive (None Detect); Urine Opiates Screen None Detected (None Detect)
[2020-08-07] MEDS ORDERED: Ondansetron 4 mg VIAL 2 MG/ML 2 ml VIAL IV PRN (05:21)
[2020-08-07] MEDS ORDERED: Dextrose 50% Syringe 50 ml 25 GM/50 ML SYRINGE IV PUSH PRN (05:21)
[2020-08-07 06:22] LABS: ABS Basophils 0.1 10^3/ul (0-0.2); ABS Eosinophils 0.4 10^3/ul (0-0.6); ABS Lymphocytes 2.4 10^3/ul (1.0-4.8); ABS Monocytes 0.9 10^3/ul (0-0.8); ABS Neutrophils 6.7 10^3/ul (1.5-7.7); Eosinophil % 4.2 %; Hematocrit 39 % (42-52); Hemoglobin 13.8 g/dL (14.0-18.0); Lymphocyte % 23.2 %; Mean Corpuscular HGB Conc 35 g/dL (31-36); Mean Corpuscular Hemoglobin 30 pg (27-31); Mean Corpuscular Volume 87 fL (80-94); Nucleated Red Blood Cells % 0.1; Platelet Count 166 10^3/uL (150-450); Red Blood Count 4.53 10^6 /uL (4.18-5.48); Red Cell Distribution Width 14 % (10-15); White Blood Count 10.5 10^3/uL (3.5-10.8)
[2020-08-07 06:41] LABS: BUN/Creatinine Ratio 15.2 (8-20); Calcium 9.1 mg/dL (8.6-10.3); EGFR African American 108.6 (>60); EGFR Non-African American 89.8 (>60); Potassium 3.8 mmol/L (3.5-5.0)
[2020-08-07 06:44] LABS: Troponin I 0.01 ng/mL (<0.03)
[2020-08-07] MEDS: NS 0.9% 1000 ml BAG 1,000 ML IV SCH (20:50)
[2020-08-08] MEDS: NS 0.9% 1000 ml BAG 1,000 ML IV SCH (05:54)
[2020-08-08 07:41] VITALS: BP 143/80
== END 2020-08-08 13:00 | disposition home or self-care (01) ==
LOC: ED 00:03 → MEDTELE 00:03
PROVIDERS: ADMIT Internal Medicine; ATTEND Internal Medicine

== ENCOUNTER 2022-05-03 16:17 | Inpatient (IN) ==
[2022-05-03] MEDS ORDERED: Ondansetron ODT 4 mg TAB 4 MG TAB ONE (17:06)
[2022-05-03] MEDS ORDERED: Ondansetron ODT 4 mg TAB 4 MG TAB PO ONE (17:06)
[2022-05-03 17:41] LABS: Hematocrit 50 % (42-52); Hemoglobin 17.2 g/dL (14.0-18.0); Mean Corpuscular HGB Conc 34 g/dL (31-36); Mean Corpuscular Hemoglobin 29 pg (27-31); Mean Corpuscular Volume 86 fL (80-94); Red Blood Count 5.86 10^6 /uL (4.18-5.48); Red Cell Distribution Width 13 % (10-15); White Blood Count 13.7 10^3/uL (3.5-10.8)
[2022-05-03] MEDS ORDERED: Lactated Ringers 1000 ml BAG 1,000 ML IV ONE ×2 (18:46→19:46)
[2022-05-03 19:40] LABS: Potassium 4.6 mmol/L (3.5-5.0)
[2022-05-03 19:41] LABS: Albumin 4.4 g/dL (3.2-5.2); Albumin/Globulin Ratio 1.1 (1-3); C Reactive Protein 3.18 mg/L (<8.01); Globulin 3.9 g/dL (2-4); Magnesium 2.6 mg/dL (1.9-2.7); Total Bilirubin 1.3 mg/dL (0.2-1.0); Total Protein 8.3 g/dL (6.4-8.9); eGFR CKD-EPI 13.4 (>60)
[2022-05-03] MEDS ORDERED: Acetaminophen IV 1 GM/100ML 1,000 MG/100 ML BAG IV ONE (19:48)
[2022-05-03] MEDS ORDERED: Ondansetron 4 mg VIAL 2 MG/ML 2 ml VIAL IV ONE (19:56)
[2022-05-03 20:14] LABS: ABS Basophils 0.1 10^3/ul (0-0.2); ABS Monocytes 1.2 10^3/ul (0-0.8); ABS Neutrophils 11.4 10^3/ul (1.5-7.7); ABS Nucleated RBC 0.1 10^3/ul; Eosinophil % 0.1 %; Large Platelets Present; Lymphocyte % 7.7 %; Mean Platelet Volume 11.2 fL (7.4-10.4); Nucleated Red Blood Cells % 0.4; Platelet Count 202 10^3/uL (150-450)
[2022-05-03] MEDS ORDERED: Dextrose 50% Syringe 50 ml 25 GM/50 ML SYRINGE IV PUSH PRN (20:18)
[2022-05-03 20:25] LABS: Venous Bicarbonate HCO3 20.5 mmol/L (24-28)
[2022-05-03 20:40] LABS: Phosphorus 11.1 mg/dL (2.5-5.0)
[2022-05-03] MEDS ORDERED: Potassium Chloride IV 20 MEQ in Lactated Ringers 1000 ml BAG 1,000 ML IVPB SCH (21:00)
[2022-05-03] MEDS ORDERED: Insulin Infusion 100unit/100mL 100 UNIT/100 ML BAG IV SCH (21:00)
[2022-05-03] MEDS ORDERED: NS 0.9% w/ 20 Meq KCL 1000 ml 1,000 ML IV SCH ×2 (21:00→23:00)
[2022-05-03 21:13] LABS: Urine Appearance Cloudy; Urine Bilirubin Negative (Negative); Urine Blood 1+ (Negative); Urine Color Yellow; Urine Glucose 3+(>=500 mg/dL) (Negative); Urine Ketones Negative (Negative); Urine Nitrite Negative (Negative); Urine Protein Negative (Negative); Urine Specific Gravity 1.017 (1.002-1.030); Urine Urobilinogen Negative (Negative)
[2022-05-03 21:17] LABS: Venous Bicarbonate HCO3 21.3 mmol/L (24-28)
[2022-05-03 21:24] LABS: Urine Creatinine Concentration 77.34 mg/dL
[2022-05-03 21:28] LABS: Urine Osmo 498 mOsm/kg (150-1150)
[2022-05-03 21:28] LABS: Osmolality Serum 331 mOsm/kg (275-295)
[2022-05-03 21:47] LABS: ABS Basophils 0.1 10^3/ul (0-0.2); ABS Lymphocytes 1.3 10^3/ul (1.0-4.8); ABS Monocytes 1.3 10^3/ul (0-0.8); ABS Neutrophils 10.2 10^3/ul (1.5-7.7); Eosinophil % 0.2 %; Hematocrit 49 % (42-52); Hemoglobin 17.1 g/dL (14.0-18.0); Lymphocyte % 9.8 %; Mean Corpuscular HGB Conc 35 g/dL (31-36); Mean Corpuscular Hemoglobin 29 pg (27-31); Mean Corpuscular Volume 84 fL (80-94); Mean Platelet Volume 10.2 fL (7.4-10.4); Nucleated Red Blood Cells % 0.2; Platelet Count 192 10^3/uL (150-450); Red Blood Count 5.84 10^6 /uL (4.18-5.48); Red Cell Distribution Width 14 % (10-15); White Blood Count 12.8 10^3/uL (3.5-10.8)
[2022-05-03 22:06] LABS: Calcium 9.3 mg/dL (8.6-10.3); Magnesium 2.5 mg/dL (1.9-2.7); Phosphorus 9.5 mg/dL (2.5-5.0); Potassium 4.5 mmol/L (3.5-5.0); eGFR CKD-EPI 15.8 (>60)
[2022-05-03 22:47] LABS: Urine Squamous Epithelial Cell Present (Absent)
[2022-05-03 22:49] LABS: Urine White Blood Cell 2+(11-20/hpf) (Absent)
[2022-05-03 22:50] LABS: Urine Red Blood Cell Casts Present (Absent)
[2022-05-04] MEDS ORDERED: D5W 1/2 NS 1000 ml BAG 1,000 ML IV SCH ×3 (01:00→03:13)
[2022-05-04 01:12] LABS: Calcium 9.5 mg/dL (8.6-10.3); Magnesium 2.8 mg/dL (1.9-2.7); Potassium 3.9 mmol/L (3.5-5.0)
[2022-05-04 01:17] LABS: Phosphorus 7.5 mg/dL (2.5-5.0); eGFR CKD-EPI 15.6 (>60)
[2022-05-04 01:55] LABS: High Sensitivity Troponin 1 Hr 16 pg/mL (<20)
[2022-05-04] MEDS: Lactated Ringers 1000 ml BAG 1,000 ML IV SCH ×3 (03:22→12:37)
[2022-05-04 04:36] LABS: Blood Urea Nitrogen 92 mg/dL (6-24); CO2 Carbon Dioxide 24 mmol/L (22-32); Calcium 8.8 mg/dL (8.6-10.3); Chloride 89 mmol/L (101-111); Cholesterol 202 mg/dL; Glucose 306 mg/dL (70-100); HDL Cholesterol 27.2 mg/dL; LDL Cholesterol 139 mg/dL; Magnesium 2.5 mg/dL (1.9-2.7); Sodium 123 mmol/L (135-145); Triglycerides 178 mg/dL; eGFR CKD-EPI 21.5 (>60)
[2022-05-04 04:40] LABS: Anion Gap 10 mmol/L (2-11)
[2022-05-04 05:09] LABS: Venous Bicarbonate HCO3 22.3 mmol/L (24-28)
[2022-05-04 05:49] LABS: Phosphorus 5.6 mg/dL (2.5-5.0); Potassium Redraw 3.9 mmol/L (3.5-5.0)
[2022-05-04] MEDS ORDERED: Dextrose 50% Syringe 50 ml 25 GM/50 ML SYRINGE IV PUSH PRN (06:47)
[2022-05-04 07:44] LABS: ABS Basophils 0.1 10^3/ul (0-0.2); ABS Eosinophils 0.1 10^3/ul (0-0.6); ABS Lymphocytes 1.3 10^3/ul (1.0-4.8); ABS Monocytes 1.1 10^3/ul (0-0.8); ABS Neutrophils 10.9 10^3/ul (1.5-7.7); Eosinophil % 0.4 %; Hematocrit 44 % (42-52); Hemoglobin 15.6 g/dL (14.0-18.0); Lymphocyte % 9.5 %; Mean Corpuscular HGB Conc 36 g/dL (31-36); Mean Corpuscular Hemoglobin 30 pg (27-31); Mean Corpuscular Volume 84 fL (80-94); Mean Platelet Volume 9.8 fL (7.4-10.4); Nucleated Red Blood Cells % 0.1; Platelet Count 171 10^3/uL (150-450); Red Blood Count 5.25 10^6 /uL (4.18-5.48); Red Cell Distribution Width 13 % (10-15); White Blood Count 13.3 10^3/uL (3.5-10.8)
[2022-05-04 07:52] LABS: Venous Bicarbonate HCO3 22.2 mmol/L (24-28)
[2022-05-04 08:24] LABS: Calcium 8.8 mg/dL (8.6-10.3); Magnesium 2.4 mg/dL (1.9-2.7); Phosphorus 4.6 mg/dL (2.5-5.0); Potassium 4.2 mmol/L (3.5-5.0); eGFR CKD-EPI 27.1 (>60)
[2022-05-04] MEDS: Heparin 5000 UNITS/ML 1 mL VIAL SUBCUT SCH ×2 (08:37→22:50)
[2022-05-04] MEDS: Insulin GLARGINE 100 un/ml 10 ml VIAL SUBCUT SCH (10:25)
[2022-05-04 13:24] LABS: Calcium 7.2 mg/dL (8.6-10.3); Potassium 3.3 mmol/L (3.5-5.0); eGFR CKD-EPI 43.2 (>60)
[2022-05-04] MEDS: KCL 20 MEQ/100 ML IVPREMIX 20 MEQ/100 ML BAG IV SCH ×3 (13:56→18:13)
[2022-05-04] MEDS ORDERED: Pantoprazole VIAL 40 MG VIAL IV SCH (14:00)
[2022-05-04 14:56] LABS: Erythrocyte Sed Rate 2 mm/Hr (0-14)
[2022-05-04] MEDS ORDERED: Lactated Ringers 1000 ml BAG 1,000 ML IV SCH (17:10)
[2022-05-04 20:22] LABS: Albumin 3.8 g/dL (3.2-5.2); Albumin/Globulin Ratio 1.3 (1-3); C Reactive Protein 3.54 mg/L (<8.01); Calcium 9.1 mg/dL (8.6-10.3); Direct Bilirubin 0.2 mg/dL (0.03-0.18); Indirect Bilirubin 1.6 mg/dL (0.3-1.0); Potassium 4.6 mmol/L (3.5-5.0); Total Bilirubin 1.8 mg/dL (0.2-1.0); Total Protein 6.8 g/dL (6.4-8.9); eGFR CKD-EPI 46.4 (>60)
[2022-05-04] MEDS ORDERED: Benzocaine/Menthol LOZ PO PRN (22:59)
[2022-05-05 00:53] LABS: Calcium 8.6 mg/dL (8.6-10.3); Potassium 4.3 mmol/L (3.5-5.0); eGFR CKD-EPI 56.3 (>60)
[2022-05-05 06:53] LABS: ABS Eosinophils 0.1 10^3/ul (0-0.6); ABS Lymphocytes 1.5 10^3/ul (1.0-4.8); ABS Monocytes 1.2 10^3/ul (0-0.8); ABS Neutrophils 7.2 10^3/ul (1.5-7.7); Eosinophil % 1.2 %; Hematocrit 39 % (42-52); Hemoglobin 13.6 g/dL (14.0-18.0); Mean Corpuscular HGB Conc 35 g/dL (31-36); Mean Corpuscular Hemoglobin 30 pg (27-31); Mean Corpuscular Volume 85 fL (80-94); Mean Platelet Volume 11.2 fL (7.4-10.4); Nucleated Red Blood Cells % 0.1; Platelet Count 149 10^3/uL (150-450); Red Blood Count 4.57 10^6 /uL (4.18-5.48); Red Cell Distribution Width 13 % (10-15)
[2022-05-05 07:06] LABS: Calcium 8.6 mg/dL (8.6-10.3); Magnesium 2.3 mg/dL (1.9-2.7); Phosphorus 2.1 mg/dL (2.5-5.0); Potassium 3.9 mmol/L (3.5-5.0)
[2022-05-05] MEDS ORDERED: Ondansetron 4 mg VIAL 2 MG/ML 2 ml VIAL IV ONE (08:43)
[2022-05-05] MEDS: Heparin 5000 UNITS/ML 1 mL VIAL SUBCUT SCH (08:51)
[2022-05-05] MEDS: Insulin GLARGINE 100 un/ml 10 ml VIAL SUBCUT SCH (08:51)
[2022-05-05 11:20] VITALS: BP 94/76
== END 2022-05-05 12:10 | disposition home or self-care (01) | DRG 420 ==
LOC: ED 16:17 → SUATTDRO 22:06 → EDHOLD 22:06 → ICU 23:45 → SSU 05-04 17:29
PROVIDERS: ADMIT Hospitalist; ATTEND Internal Medicine